=== PATIENT | male | born 1955 | race Asian ===

== ENCOUNTER 2023-11-08 08:29 | Observation (INO) | payer MEDICARE ==
[2023-11-08] MEDS ORDERED: Nitroglycerin 2% Ointment 1 INCH/1 GM Packet ONE (08:53)
[2023-11-08] MEDS ORDERED: Aspirin Chewable 81 MG TAB ONE (08:53)
[2023-11-08 09:11] LABS: #Basophils 0.05 10x3/uL (0.0-0.2); #Eosinphils 0.15 10x3/uL (0.0-0.5); #Monocytes 0.38 10x3/uL (0.0-1.1); #Neutrophils 5.55 10x3/uL (1.5-8.4); %Basophils 0.6 % (0.0-2.0); %Eosinophils 1.9 % (0.0-6.0); %Lymphocytes 22.4 % (18.0-47.0); %Monocytes 4.8 % (0.0-10.0); Hematocrit 39.8 % (38.8-50.0); Hemoglobin 13.4 g/dL (13.5-17.5); Mean Corpuscular HGB CONC 33.7 g/dL (32.0-36.0); Mean Corpuscular Hemoglobin 30.4 pg (27.0-33.0); Mean Corpuscular Volume 90.2 fL (81.2-95.1); Mean Platelet Volume 9.5 fL (7.4-10.4); Platelet Count 264 10x3/uL (150-450); RBC Distribution Width 13.2 % (11.5-14.5); Red Blood Cell (RBC) Count 4.41 10x6/uL (4.32-5.72); White Blood Cell (WBC) Count 7.9 10x3/uL (3.5-10.5)
[2023-11-08 09:39] LABS: ALT (SGPT) 15 U/L (8-55); AST (SGOT) 16 U/L (5-34); Alkaline Phosphatase 74 U/L (40-110); Anion Gap 14 mmol/L (10-20); BUN (Urea Nitrogen) 15 mg/dL (8.4-25.7); Bilirubin, Total 1.1 mg/dL (0.2-1.2); Calc. Creatinine Clearance 0 mL/min (70-130); Calcium 9.4 mg/dL (7.8-10.44); Carbon Dioxide 22 mmol/L (23-31); Chloride 106 mmol/L (98-107); Estimated GFR 68; Globulin 2.7 g/dL (2.4-3.5); Glucose 133 mg/dL (80-115); Lipase 38 U/L (8-78); Potassium 3.8 mmol/L (3.5-5.1); Protein, Total 6.7 g/dL (5.8-8.1); Sodium 138 mmol/L (136-145)
[2023-11-08 09:41] LABS: Troponin I Less than 0.010 ng/mL (< 0.028)
[2023-11-08] MEDS ORDERED: Labetalol HCl 100 MG/20 ML VIAL ONE (10:02)
[2023-11-08] MEDS ORDERED: hydrALAZINE 20 MG/ML VIAL ONE (11:11)
[2023-11-08] MEDS ORDERED: hydrALAZINE 20 MG/ML VIAL SLOW IVP PRN (11:51)
[2023-11-08] MEDS ORDERED: Insulin Lispro 100 UNIT/ML 10 ML VIAL SC PRN (11:58)
[2023-11-08] MEDS ORDERED: Dextrose 50% Abboject 50 ML SYRINGE SLOW IVP PRN (11:58)
[2023-11-08] MEDS ORDERED: Glucagon 1 MG/ML KIT IM PRN (11:58)
[2023-11-08] MEDS ORDERED: Dextrose 5% in Water 1,000 ML IV PRN (11:58)
[2023-11-08 13:05] LABS: Troponin I Less than 0.010 ng/mL (< 0.028)
[2023-11-08 13:42] VITALS: BMI 23.8
[2023-11-08] MEDS: Isosorbide Dinitrate 20 MG TAB PO SCH (14:16)
[2023-11-08 15:20] LABS: Troponin I Less than 0.010 ng/mL (< 0.028)
[2023-11-08] MEDS ORDERED: Carvedilol 6.25 MG TAB PO SCH (17:00)
[2023-11-08] MEDS: Lisinopril 20 MG TAB PO SCH (18:37)
[2023-11-08] MEDS: Pantoprazole DR 40 MG TAB PO SCH (18:38)
[2023-11-08] MEDS: Carvedilol 25 MG TAB PO SCH (18:38)
[2023-11-08] MEDS: Atorvastatin Calcium 40 MG TAB PO SCH (20:33)
[2023-11-08] MEDS: TICAGRELOR 90 MG TABLET PO SCH (20:33)
[2023-11-08] MEDS ORDERED: Atorvastatin Calcium 40 MG TAB PO SCH (21:00)
[2023-11-08] MEDS ORDERED: Isosorbide Dinitrate 20 MG TAB PO SCH (21:00)
[2023-11-09 08:54] VITALS: TEMP 98.7
[2023-11-09] MEDS: Aspirin Chewable 81 MG TAB PO SCH (08:56)
[2023-11-09] MEDS: Lisinopril 20 MG TAB PO SCH (08:57)
[2023-11-09 08:58] VITALS: BP 132/86
[2023-11-09] MEDS ORDERED: Lisinopril 20 MG TAB PO SCH (09:00)
[2023-11-09] MEDS ORDERED: Pantoprazole DR 40 MG TAB PO SCH (21:00)
== END 2023-11-09 10:02 | disposition home or self-care (01) ==
LOC: CSHERS 08:29 → CSHTELE 13:02
PROVIDERS: ADMIT Internal Medicine; ATTEND Internal Medicine
DX: R07.89 Other chest pain (principal); E11.9 Type 2 diabetes mellitus without complications; E78.5 Hyperlipidemia, unspecified; I11.9 Hypertensive heart disease without heart failure; I25.10 Atherosclerotic heart disease of native coronary artery without angina pectoris; Z79.82 Long term (current) use of aspirin; Z79.899 Other long term (current) drug therapy
CPT/HCPCS: 71045; 80053; 82962 ×2; 83690; 83880; 84484 ×2; 85025; 93005; 96374; 96375; 99285; G0378 ×3; J0360; 36415; 36416

== ENCOUNTER 2023-12-09 12:27 | Outpatient (CLI) | payer MEDICARE | END 2023-12-09 12:28 | disposition home or self-care (01) | LOC: CSHRAD 12:27 | PROVIDERS: ATTEND Chiropractor | DX: M54.2 Cervicalgia (principal); M47.812 Spondylosis without myelopathy or radiculopathy, cervical region; M43.12 Spondylolisthesis, cervical region; M48.02 Spinal stenosis, cervical region | CPT/HCPCS: 72040 ==